=== PATIENT | female | born 1985 | race Two or more races ===

== ENCOUNTER 2017-01-12 08:30 | Emergency (ER) | payer MEDICAID ==
[2017-01-12 08:48] VITALS: BP 121/72; PULSE 66; RESP 20; TEMP 97.9; O2SAT 96
--- NOTE | 2017-01-12 09:43 | UCPHY ---
H & P Time Seen by Provider: 01/12/17 09:20 Patient Type: Established HPI/ROS: This patient complains of laryngitis with a hoarse voice and sore throat that started Monday, 3 days prior to arrival. He now has a cough that started yesterday as described is a dry cough with slight increase in symptoms over the past 12 hours or so. She has associated low-grade fevers and had no other significant symptoms associated with this. ROS: No high fevers or chills. No ear pain. No difficulty swallowing food. 5 point ROS is otherwise negative. Smoking Status: Never smoked Physical Exam: Physical Exam Vital signs are normal. General: No acute distress HEENT: Nose: Clear discharge bilaterally. No sinus tenderness to percussion. Ears: External canals and tympanic membranes are clear with no erythema or abnormal findings bilaterally. Oropharynx: No erythema or exudates. Minimal dysphonia. No drooling or stridor. Eyes: Pupils equal and react to light. Extraocular motions are intact. Neck: Supple. No lymphadenopathy Lungs: Clear to auscultation bilaterally with no rales, rhonchi or wheeze. No respiratory distress. Cardiac: Regular rate and rhythm with no murmur gallop or rub Skin: No rash or pallor. Neuro: Alert with no focal deficits noted. Initial differential diagnosis: Viral laryngitis, viral bronchitis, doubt bacterial bronchitis or pneumonia Constitutional: Initial Vital Signs Temperature (C) 36.6 C 01/12/17 08:43 Heart Rate 66 01/12/17 08:43 Respiratory Rate 20 01/12/17 08:43 Blood Pressure 121/72 H 01/12/17 08:43 O2 Sat (%) 96 01/12/17 08:43 O2 Delivery Mode Room Air Allergies/Adverse Reactions: No Known Allergies Allergy (Verified 01/12/17 08:41) Home Medications: Medication Instructions Recorded Albuterol Hfa Anes Only [Proair 2 puffs IH Q4 PRN #1 mdi 01/12/17 Hfa Icu (*)] Fluticasone Hfa 220 Mcg [Flovent 2 puffs IH DAILY #1 mdi 01/12/17 220 MCG Hfa MDI (*)] HYDROCODONE BIT/ACETAMINOPHEN 01/12/17 Hydrochlorothiazide 01/12/17 Lisinopril 01/12/17 Pantoprazole Sodium 01/12/17 MDM/Departure - MDM ED Course/Re-evaluation: I counseled patient regarding viral laryngitis and bronchitis. She has no evidence of lower respiratory infection other concerning findings clinically. - Depart Disposition: Home, Routine, Self-Care Clinical Impression: Laryngitis, Viral bronchitis Condition: Good Instructions: Laryngitis (ED) Additional Instructions: Diagnosis: 1. Viral laryngitis 2. Viral bronchitis Plan: Humidifier Flovent steroid inhaler Albuterol inhaler-2 puffs every 4 hours as needed for cough, wheeze or shortness of breath Symptoms should improve gradually over the next 5-7 days. Return for any significant worsening despite treatment plan Stand Alone Forms: Work Excuse Prescriptions: Albuterol Hfa Anes Only [Proair Hfa Icu (*)] 2 puffs IH Q4 PRN #1 mdi PRN Reason: Wheezing Fluticasone Hfa 220 Mcg [Flovent 220 MCG Hfa MDI (*)] 2 puffs IH DAILY #1 mdi Referrals: NONE *PRIMARY CARE P,. [Primary Care Provider] - As per Instructions - PQRS PQRS Measurement: NA
== END 2017-01-12 09:48 | disposition home or self-care (01) ==
LOC: CED 08:30
DX: J04.0 Acute laryngitis (principal); J20.8 Acute bronchitis due to other specified organisms
CPT/HCPCS: 99214-PO; G0463-PO

== ENCOUNTER → 2017-04-05 | Outpatient (CLI) | payer MEDICAID | LOC: CIMAGING 12:24 → MERGE 12:24 | PROVIDERS: ATTEND Family Medicine | DX: E04.1 Nontoxic single thyroid nodule (principal) | CPT/HCPCS: 76536-PO ==

== ENCOUNTER 2018-03-20 13:10 | Emergency (ER) | payer MEDICAID ==
[2018-03-20] MEDS ORDERED: NS 1,000 ML IV ONE (13:46)
--- NOTE | 2018-03-20 13:46 | EDPHY ---
H & P Stated Complaint: ABD PAIN Source: Patient - Personal History LMP (Females 10-55): 22-28 Days Ago Current Tetanus/Diphtheria Vaccine: Yes Tetanus Vaccine Date: WITHIN 10 YRS - Medical/Surgical History Hx Asthma: No Hx Chronic Respiratory Disease: No Hx Diabetes: No Hx Cardiac Disease: No Hx Renal Disease: No Hx Cirrhosis: No Hx Alcoholism: No Hx HIV/AIDS: No Hx Splenectomy or Spleen Trauma: No Other PMH: appendectomy, , tonsillectomy, hypertension, gerd, buldging L5 - Social History Smoking Status: Former smoker Time Seen by Provider: 03/20/18 13:45 HPI/ROS: HPI: This is a 33-year-old female who presents with Chief Complaint: Left upper quadrant abdominal pain Location: Left upper quadrant and epigastric Quality: Pain Duration: Starting yesterday after dinner Signs and Symptoms: no fever, no nausea, no vomiting, no hematemesis, no blood in stool, no abdominal bloating, no diarrhea, no back pain, no urinary symptoms , no vaginal bleeding/discharge, no indigestion, no chest pain, no shortness of breath Timing: Acute, dull and aching Severity: [id number] Context: Patient has a history of gastroesophageal reflux disease and takes Prilosec 20 mg daily presents with epigastric and left upper quadrant pain that is described as dull aching and burning and nonradiating in nature since yesterday evening after dinner. Patient reports that she ate pizza for dinner in immediately started to feel the pain. She denies any nausea, vomiting, diarrhea, fever, chest pain, shortness of breath. Patient believes that she has been taking Prilosec daily and that her GERD symptoms were under control. She was able to eat and drink today with only mild discomfort. She is status post appendectomy. Patient had a bowel movement yesterday. Patient denies any recent long distance travel, lower extremity edema, shortness of breath, cough. Denies regular alcohol or NSAID use. LMP 2-3 weeks ago. Chart review shows that HIDA scan in September [address] Beauchamp was normal. Modifying Factors: None Comment: ROS: see HPI Constitutional: No fever, no chills, no weight loss Eyes: No blurred vision Respiratory: No shortness of breath, no cough Cardiovascular: No chest pain, no palpitations Gastrointestinal: No nausea, no vomiting, no diarrhea, no hematemesis, no blood in stool Genitourinary: No dysuria, no blood in urine Extremities: No myalgias, no edema Neurologic: No weakness, no numbness Skin: No rashes, no petechiae Hematologic: No bruising, no bleeding MEDICAL/SURGICAL/SOCIAL HISTORY: Medical/surgical history: appendectomy, , tonsillectomy, hypertension , gerd, bulging L5 Social history: Former smoker. Family history noncontributory. CONSTITUTIONAL: Obese female who is nontoxic in appearance and polite and cooperative, awake and alert, no obvious distress HEENT: Atraumatic and normocephalic, PERRL, EOMI. Nares patent; no rhinorrhea; no nasal mucosal edema. Tympanic membranes clear. Oropharynx clear, no exudate and moist pink mucosa. Airway patent. No lymphadenopathy. No meningismus. Cardiovascular: Normal S1/S2, regular rate, regular rhythm, without murmur rub or gallop. PULMONARY/CHEST: Symmetrical and nontender. Clear to auscultation bilaterally. Good air movement. No accessory muscle usage. ABDOMEN: Soft, nondistended, right upper quadrant and epigastric moderate tenderness, no rebound, no guarding, no peritoneal signs, no masses or organomegaly. No CVAT. EXTREMITIES: 2/2 pulses, strength 5/5, no deformities, no clubbing, no cyanosis or edema. NEUROLOGICAL: no focal neuro deficits. GCS 15. SKIN: Warm and dry, no erythema. no rash. Good capillary refill. (Funmi Valencia) Constitutional: Initial Vital Signs Temperature (C) 36.6 C 03/20/18 13:13 Heart Rate 79 03/20/18 13:13 Respiratory Rate 16 03/20/18 13:13 Blood Pressure 141/112 H 03/20/18 13:13 O2 Sat (%) 95 03/20/18 13:13 O2 Delivery Mode Room Air Allergies/Adverse Reactions: No Known Allergies Allergy (Verified 03/20/18 13:16) Home Medications: Medication Instructions Recorded Hydrocodon-Acetaminophen 5-325 2 tab PO DAILY 06/03/16 Lisinopril 5 mg PO DAILY 06/03/16 Meloxicam 15 mg PO DAILY 06/03/16 Pantoprazole Sodium 40 mg PO DAILY 06/03/16 Albuterol Hfa Anes Only [Proair 2 puffs IH Q4 PRN #1 mdi 01/12/17 Hfa Icu (*)] Fluticasone Hfa 220 Mcg [Flovent 2 puffs IH DAILY #1 mdi 01/12/17 220 MCG Hfa MDI (*)] HYDROCODONE BIT/ACETAMINOPHEN 01/12/17 Hydrochlorothiazide 01/12/17 Lisinopril 01/12/17 Pantoprazole Sodium 01/12/17 Sucralfate [Carafate 1 GM (*)] 1 gm PO ACHS #28 tab 03/20/18 Medical Decision Making - Diagnostics EKG Interpretation: 12 lead EKG: Indication: Abdominal pain Rhythm: Normal sinus rhythm, rate 53 beats per minute [place]: Normal Intervals: Normal QRS: Normal ST segments: Normal INTERPRETATION: Normal EKG The 12 lead EKG was interpreted by myself and with attending. (Funmi Valencia) ED Course/Re-evaluation: EKG, labs, right upper quadrant ultrasound, urinalysis, IV fluids, IV and oral medications ordered Vital signs reviewed and stable upon arrival. Given 1 L normal saline, IV Protonix, GI cocktail 1425: EKG my read shows normal sinus rhythm with a rate of 53 beats per minute. No signs of acute ischemic changes or arrhythmia. 1435: Notified by nurse that patient is still complaining of pain in the epigastric area. Given IV morphine 4 mg and IV Zofran 4 mg with moderate relief of pain. 1539: Labs reviewed. No signs of leukocytosis/anemia/platelet dysfunction/TATY/ elevated LFTs/electrolyte imbalance/pancreatitis/ACS. 1700: End of shift. Signed over to Dr. Cooper pending right upper quadrant ultrasound results. Will increase her Prilosec to 40 twice a day and add Carafate for the next week. This patient was seen under the supervision of my secondary supervising physician. I evaluated care for this patient independently. Discussed this patient with Dr. Cooper. (Funmi Valencia) Differential Diagnosis: Abdominal pain including but not limited to appendicitis, cholecystitis, gastritis and urinary tract infection. (Funmi Valencia) Other Provider: 16:45 I assumed care of this patient at shift change pending US results. 16:[address] Pollard, radiologist. US negative for cholecystitis. UA positive for UTI. I assessed and examined the patient. She is tender over the left CVA. Presentation is consistent with pyelonephritis. Plan to administer 2gm IV Ceftriaxone. Plan to discharge home in good condition with prescription for Keflex and oxycodone for pain relief. She will follow up with her primary care physician. Return precautions discussed. She is comfortable with this plan. ( Reilly Cooper) - Data Points Laboratory Results: Laboratory Results 03/20/18 14:00 03/20/18 14:00 03/20/18 03/20/18 03/20/18 16:00 15:18 14:37 WBC RBC Hgb Hct MCV MCH MCHC RDW Plt Count MPV Neut % (Auto) Lymph % (Auto) [place] % (Auto) Eos % (Auto) Baso % (Auto) Nucleat RBC Rel Count Absolute Neuts (auto) Absolute Lymphs (auto) Absolute Monos (auto) Absolute Eos (auto) Absolute Basos (auto) Absolute Nucleated RBC Immature Gran % Immature Gran # Sodium Potassium Chloride Carbon Dioxide Anion Gap BUN Creatinine Estimated GFR Glucose Calcium Total Bilirubin Conjugated Bilirubin Unconjugated Bilirubin AST ALT Alkaline Phosphatase POC Troponin I 0.00 ng/mL ng/mL (0.00-0.08) Troponin I < 0.012 ng/mL ng/mL (0.000-0.034) Total Protein Albumin Lipase Beta HCG, Qual Urine Color YELLOW Urine Appearance HAZY Urine pH 6.0 (5.0-7.5) Ur Specific Fore[place] 1.011 (1.002-1.030) Urine Protein NEGATIVE (NEGATIVE) Urine Ketones NEGATIVE (NEGATIVE) Urine Blood 1+ H (NEGATIVE) Urine Nitrate NEGATIVE (NEGATIVE) Urine Bilirubin NEGATIVE (NEGATIVE) Urine Urobilinogen NEGATIVE EU EU (0.2-1.0) Ur Leukocyte Esterase 3+ H (NEGATIVE) Urine RBC 5-10 /hpf H /hpf (0-3) Urine WBC 25-50 /hpf H /hpf (0-3) Ur Epithelial Cells 2+ /lpf H /lpf (NONE-1+) Urine Bacteria TRACE /hpf H /hpf (NONE SEEN) Urine Mucus TRACE /lpf /lpf (NONE-1+) Urine Glucose NEGATIVE (NEGATIVE) 03/20/18 03/20/18 03/20/18 14:00 14:00 14:00 WBC 8.26 10^3/uL 10^3/uL (3.80-9.50) RBC 5.31 10^6/uL 10^6/uL (4.18-5.33) Hgb 14.9 g/dL g/dL (12.6-16.3) Hct 43.2 % % (38.0-47.0) MCV 81.4 fL L fL (81.5-99.8) MCH 28.1 pg pg (27.9-34.1) MCHC 34.5 g/dL g/dL (32.4-36.7) RDW 13.1 % % (11.5-15.2) Plt Count 303 10^3/uL 10^3/uL (150-400) MPV 9.1 fL fL (8.7-11.7) Neut % (Auto) 58.9 % % (39.3-74.2) Lymph % (Auto) 32.4 % % (15.0-45.0) [place] % (Auto) 6.2 % % (4.5-13.0) Eos % (Auto) 1.7 % % (0.6-7.6) Baso % (Auto) 0.6 % % (0.3-1.7) Nucleat RBC Rel Count 0.0 % % (0.0-0.2) Absolute Neuts (auto) 4.86 10^3/uL 10^3/uL (1.70-6.50) Absolute Lymphs (auto) 2.68 10^3/uL 10^3/uL (1.00-3.00) Absolute Monos (auto) 0.51 10^3/uL 10^3/uL (0.30-0.80) Absolute Eos (auto) 0.14 10^3/uL 10^3/uL (0.03-0.40) Absolute Basos (auto) 0.05 10^3/uL 10^3/uL (0.02-0.10) Absolute Nucleated RBC 0.00 10^3/uL 10^3/uL (0-0.01) Immature Gran % 0.2 % % (0.0-1.1) Immature Gran # 0.02 10^3/uL 10^3/uL (0.00-0.10) Sodium 141 mEq/L mEq/L (135-145) Potassium 4.0 mEq/L mEq/L (3.3-5.0) Chloride 106 mEq/L mEq/L (97-110) Carbon Dioxide 21 mEq/l L mEq/l (22-31) Anion Gap 14 mEq/L mEq/L (8-16) BUN 11 mg/dL mg/dL (7-23) Creatinine 0.8 mg/dL mg/dL (0.6-1.0) Estimated GFR > 60 Glucose 96 mg/dL mg/dL (70-100) Calcium 9.5 mg/dL mg/dL (8.5-10.4) Total Bilirubin 0.8 mg/dL mg/dL (0.1-1.4) Conjugated Bilirubin 0.5 mg/dL mg/dL (0.0-0.5) Unconjugated Bilirubin 0.3 mg/dL mg/dL (0.0-1.1) AST 34 IU/L IU/L (14-46) ALT 46 IU/L IU/L (9-52) Alkaline Phosphatase 94 IU/L IU/L (38-126) POC Troponin I Troponin I Total Protein 7.4 g/dL g/dL (6.3-8.2) Albumin 4.1 g/dL g/dL (3.5-5.0) Lipase 119 IU/L IU/L (23-300) Beta HCG, Qual NEGATIVE Urine Color Urine Appearance Urine pH Ur Specific Foreman Urine Protein Urine Ketones Urine Blood Urine Nitrate Urine Bilirubin Urine Urobilinogen Ur Leukocyte Esterase Urine RBC Urine WBC Ur Epithelial Cells Urine Bacteria Urine Mucus Urine Glucose Medications Given: Discontinued Medications Al Hydroxide/Mg Hydroxide (Maalox Susp) 30 ml PO ONCE ONE Stop: 03/20/18 13:53 Last Admin: 03/20/18 14:10 Dose: 30 ml Hyoscyamine Sulfate (Levsin, Hyomax-Sl) 0.25 mg PO ONCE ONE Stop: 03/20/18 13:53 Last Admin: 03/20/18 14:10 Dose: 0.25 mg Sodium Chloride (Ns) 1,000 mls @ 0 mls/hr IV EDNOW ONE; Wide Open PRN Reason: Protocol Stop: 03/20/18 13:47 Last Admin: 03/20/18 14:10 Dose: 1,000 mls Lidocaine (Lidocaine 2% Viscous) 15 ml PO ONCE ONE Stop: 03/20/18 13:53 Last Admin: 03/20/18 14:10 Dose: 15 ml Morphine Sulfate (Morphine) 4 mg IVP EDNOW ONE Stop: 03/20/18 14:37 Last Admin: 03/20/18 15:03 Dose: 4 mg Ondansetron HCl (Zofran) 4 mg IVP EDNOW ONE Stop: 03/20/18 14:58 Last Admin: 03/20/18 15:04 Dose: 4 mg Pantoprazole Sodium (Protonix) 40 mg IVP EDNOW ONE Stop: 03/20/18 13:53 Last Admin: 03/20/18 14:10 Dose: 40 mg Point of Care Test Results: Chemistry 03/20/18 15:18 POC Troponin I 0.00 ng/mL ng/mL (0.00-0.08) Departure - Departure Disposition: Home, Routine, Self-Care Clinical Impression: Acute pyelonephritis GERD (gastroesophageal reflux disease) Qualifiers: Esophagitis presence: esophagitis presence not specified Qualified Code(s): K21.9 - Gastro-esophageal reflux disease without esophagitis Condition: Good Instructions: Diet for Stomach Ulcers and Gastritis (ED), Gastroesophageal Reflux Disease (ED), Urinary Tract Infection in Women (ED), Kidney Infection (ED ), Cephalexin (By mouth) Additional Instructions: Take Keflex as prescribed. It is important to finish your entire course of antibiotics even if you are feeling better. Take oxycodone as prescribed as needed for severe pain. Return to the emergency department for fever, worsening pain, or other worsening of condition. Please increase Prilosec to 40 mg twice daily for the next 2 weeks. Then resume Prilosec 20 mg daily. Take Carafate 30 min before meals and at bedtime for the next 7 days. Follow-up with Gastroenterology in the next 1-2 weeks if symptoms persist. Please follow gastroesophageal reflux disease diet. Referrals: Samantha Rowe MD [Primary Care Provider] - As per Instructions Prescriptions: Sucralfate [Carafate 1 GM (*)] 1 gm PO ACHS #28 tab
[2018-03-20] MEDS ORDERED: HYOSCYAMINE SULFATE 0.125 MG TAB PO ONE (13:52)
[2018-03-20] MEDS ORDERED: MAG HYDROX/AL HYDROX/SIMETH 30 ML UDCUP PO ONE (13:52)
[2018-03-20] MEDS ORDERED: PANTOPRAZOLE SODIUM 40 MG VIAL IVP ONE (13:52)
[2018-03-20] MEDS ORDERED: LIDOCAINE 2% VISCOUS 15 ML UDCUP PO ONE (13:52)
[2018-03-20 14:16] LABS: PLATELET COUNT 303 10^3/uL (150-400)
--- NOTE | 2018-03-20 14:22 | CPEKG ---
Heart Rate: 53 RR Interval: 1132 P-R Interval: 160 QRSD Interval: 76 QT Interval: 440 QTC Interval: 414 P [place]: 35 QRS [place]: 32 T Wave [place]: 16 EKG Severity - NORMAL ECG - EKG Impression: SINUS RHYTHM Electronically Signed By: Serjio Howe 20-Mar-2018 14:27:56
[2018-03-20] MEDS ORDERED: ONDANSETRON 4 MG/2 ML VIAL IVP ONE (14:57)
[2018-03-20 18:31] VITALS: BP 102/63
== END 2018-03-20 18:28 | disposition home or self-care (01) ==
DX: N10 Acute pyelonephritis (principal); K21.9 Gastro-esophageal reflux disease without esophagitis; I10 Essential (primary) hypertension; B96.89 Other specified bacterial agents as the cause of diseases classified elsewhere; E86.9 Volume depletion, unspecified; Z87.891 Personal history of nicotine dependence; Z90.49 Acquired absence of other specified parts of digestive tract
CPT/HCPCS: 84484-PO; 96365; J0696; J2270; J2405

== ENCOUNTER 2018-12-29 16:36 | Emergency (ER) | payer MEDICAID ==
[2018-12-29] MEDS ORDERED: NS 500 ML IV ONE (18:39)
[2018-12-29] MEDS ORDERED: DEXAMETHASONE 10 MG/ML VIAL IVP ONE (18:39)
[2018-12-29] MEDS ORDERED: METOCLOPRAMIDE 10 MG/2 ML VIAL IVP ONE (18:39)
[2018-12-29] MEDS ORDERED: KETOROLAC 30 MG/1 ML SDV IVP ONE (18:39)
--- NOTE | 2018-12-29 18:50 | EDPHY ---
H & P Time Seen by Provider: 12/29/18 18:02 HPI/ROS: HPI Headache. Eyes burning. 33-year-old female by private vehicle with her friend. This patient reports a gradual onset headache starting 3 days ago. She describes this as global throughout her entire head. She describes it as an aching sensation. She has had headaches in the past but they have not persisted to this extent. She describes her past headaches as tension headaches. She also describes having a burning sensation in her eyes and her eyes being red. She denies any purulent discharge or other significant discharge. No history of trauma to the eyes. She denies any change in her vision. She has not had any photophobia. She denies any neck pain. ROS: Constitutional: No fever, no chills. No weakness. Eyes: No discharge. No changes in vision. As above. ENT: No sore throat. No nasal congestion or rhinorrhea. Respiratory: No cough. No shortness of breath. Cardiac: No chest pain, no palpitations. Gastrointestinal: No abdominal pain, no vomiting, no diarrhea. Genitourinary: No hematuria. No dysuria or increased frequency with urination. Musculoskeletal: No back pain. No neck pain. No myalgias or arthralgias. Skin: No rashes. Neurological: As above. No focal weakness or altered sensation. Past medical history: Appendectomy, , tonsillectomy, hypertension, GERD, anxiety, bulging disc at L5. Social history: Nonsmoker. She denies alcohol. She is here with her friend. Physical Exam: General Appearance: Alert, she does not appear to be in distress. This patient is responding to questions appropriately and in full sentences. This patient appears well-hydrated and well-nourished. Eyes: Pupils equal and round no pallor or injection. She has some vague and mild scleral erythema. No discharge. No pain with extraocular movements. No lid edema, erythema or injection. No nystagmus. No photophobia. Respiratory: There are no retractions, lungs are clear to auscultation with good air movement bilaterally. Cardiovascular: Regular rate and rhythm. No murmur. Gastrointestinal: Abdomen is soft and nontender, no masses, bowel sounds normal. No focal tenderness at McBurney's point. No Dominguez sign. Neurological: Motor sensory function is grossly intact. Cranial nerves are normal. Gait is normal. Skin: Warm and dry, no rashes. Musculoskeletal: Neck is supple and nontender. She has no pain on flexion of her neck. Extremities are symmetrical. All joints range without pain or impingement. Psychiatric: No agitation. No depression. Database: EKG: EKG time is 6:44 p.m.; EKG shows a narrow complex normal sinus rhythm with a ventricular rate of 64. The [place], QRS, QT intervals are within normal limits. There are no ST-T wave changes indicative of ischemic or injury pattern. No evidence of right heart strain. Interpreted by me. Imaging: Procedures: Emergency department course: Her triage vitals were reviewed and are unremarkable. She is afebrile. During my evaluation she told me that while she was in the waiting room she had needle- like stabbing in her left upper chest. This came on suddenly and has since resolved. An EKG was obtained and reviewed by myself. This was unremarkable. Her presentation is consistent with a tension versus migraine headache. I do not believe she has an infectious conjunctivitis. I feel the burning in her eyes is likely allergy related. An IV will be placed. She will be started on IV normal saline with 500 cc to be given over the next hour. She will initially be given 25 mg of IV Benadryl, 10 mg of IV Reglan, 10 mg of IV Decadron and 30 mg of IV Toradol. Carboxyhemoglobin will also be obtained. 7:25 p.m., the patient stated that her headache pain has improved but is still present. She was given 0.5 mg of IV hydromorphone. 8:25 p.m., the patient was re-evaluated, she was sleeping but easily arousable. She reports that her headache is much better. Repeat neurologic Assessment is nonfocal. Her neck is supple and nontender on flexion of her neck. She does not have any photophobia. I feel that meningitis and encephalitis as well as subarachnoid hemorrhage or unlikely. She does feel comfortable going home at this time. Her friend will be driving. Follow-up was discussed with her. Return to emergency department precautions thoroughly reviewed. All of her questions were answered. She was discharged from the emergency department in good condition. The results of her EKG was discussed with her. She has had no further chest pain or discomfort while in the emergency department. Differential Diagnosis: The differential diagnosis on this patient includes but is not limited to tension headache, migraine headache. Subarachnoid hemorrhage, cavernous sinus thrombosis, sagittal sinus thrombosis, temporal arteritis, meningitis, encephalitis unlikely. This represents a partial list of diagnoses considered. These considerations are based on history, physical exam, past history, reassessment and diagnostic testing. Smoking Status: Former smoker Constitutional: Initial Vital Signs Temperature (C) 37.3 C 12/29/18 16:48 Heart Rate 78 12/29/18 16:48 Respiratory Rate 18 12/29/18 16:48 Blood Pressure 133/94 H 12/29/18 16:48 O2 Sat (%) 93 12/29/18 16:48 O2 Delivery Mode Room Air Allergies/Adverse Reactions: No Known Allergies Allergy (Verified 12/29/18 16:51) Home Medications: Medication Instructions Recorded Meloxicam 15 mg PO DAILY 06/03/16 HYDROCODONE BIT/ACETAMINOPHEN 01/12/17 Hydrochlorothiazide 01/12/17 Lisinopril 01/12/17 Pantoprazole Sodium 01/12/17 Medical Decision Making - Data Points Laboratory Results: 12/29/18 18:50 Carboxyhemoglobin 1.6 % H % (0-1.5) Medications Given: Discontinued Medications Dexamethasone (Decadron Injection) 10 mg IVP EDNOW ONE Stop: 12/29/18 18:40 Last Admin: 12/29/18 19:00 Dose: 10 mg Diphenhydramine HCl (Benadryl Injection) 25 mg IVP EDNOW ONE Stop: 12/29/18 18:40 Last Admin: 12/29/18 19:00 Dose: 25 mg Hydromorphone HCl (Dilaudid) 0.5 mg IVP EDNOW ONE Stop: 12/29/18 19:31 Last Admin: 12/29/18 19:34 Dose: 0.5 mg Sodium Chloride (Ns) 500 mls @ 0 mls/hr IV ONCE ONE; Wide Open PRN Reason: Protocol Stop: 12/29/18 18:40 Last Admin: 12/29/18 19:01 Dose: 500 mls Ketorolac Tromethamine (Toradol) 30 mg IVP EDNOW ONE Stop: 12/29/18 18:40 Last Admin: 12/29/18 19:06 Dose: 30 mg Metoclopramide HCl (Reglan Injection) 10 mg IVP EDNOW ONE Stop: 12/29/18 18:40 Last Admin: 12/29/18 19:00 Dose: 10 mg Departure - Departure Disposition: Home, Routine, Self-Care Clinical Impression: Headache, Allergic conjunctivitis Condition: Good Instructions: Acute Headache (ED) Additional Instructions: Read and follow provided instructions. Follow-up with your primary care physician on Monday or Monday of this week for re-evaluation as discussed. I feel the irritation to your eyes is secondary to an allergic problem. You can get [id number] drops at your pharmacy for allergic conjunctivitis. I do not feel that you need antibiotics at this time. Return to the emergency department for worsening headache, nausea and vomiting, neck pain, confusion, fever or other serious concerns. Referrals: Samantha Rowe MD [Primary Care Provider] - As per Instructions
[2018-12-29] MEDS ORDERED: HYDROmorphONE/DILAUDID 2 MG/ML INJ IVP ONE (19:30)
[2018-12-29 20:50] VITALS: BP 122/77
--- NOTE | 2018-12-30 20:57 | CPEKG ---
Test Reason : OPEN Blood Pressure : / mmHG Vent. Rate : 064 BPM Atrial Rate : 063 BPM P-R Int : 147 ms QRS Dur : 081 ms QT Int : 411 ms P-R-T Axes : 038 033 026 degrees QTc Int : 424 ms Sinus rhythm Confirmed by Cookie Schneider ([id number]) on 12/30/2018 8:57:02 PM Referred By: Cookie Schneider Confirmed By:Cookie Schneider
== END 2018-12-29 20:49 | disposition home or self-care (01) ==
DX: R51 Headache (principal); H10.13 Acute atopic conjunctivitis, bilateral
CPT/HCPCS: 96374; J1100; J1170; J1200; J1885; J2765

== ENCOUNTER 2018-12-30 20:50 | Emergency (ER) | payer MEDICAID ==
--- NOTE | 2018-12-30 21:26 | EDPHY ---
H & P Stated Complaint: MATA, NECK PAIN, NAUSEA Time Seen by Provider: 12/30/18 20:57 HPI/ROS: CHIEF COMPLAINT: "I've got a headache" HISTORY OF PRESENT ILLNESS: 33-year-old female arrives via private vehicle complaining of non thunderclap headache since yesterday afternoon. She was seen the ER yesterday for complaints of pain states that she had moderate relief however the pain returned this morning. She describes a non thunderclap headache with associated photophobia, audio phobia, nausea, vomiting. She denies: Gait instability, major minor head or neck trauma or neck manipulation , chest pain, dyspnea, abdominal pain, fever, chills, chest pain REVIEW OF SYSTEMS: 10 systems reviewed and negative with the exception of the elements mentioned in the history of present illness PAST MEDICAL & SURGICAL HISTORY: No history of chronic headache or migraine. No VTE history. SOCIAL HISTORY: Denies IV drug abuse. PHYSICAL EXAM (Prior to examination, patient consented to physical exam, hands were washed and my usual and customary physical exam procedures followed) 1) GENERAL: Well-developed, well-nourished, alert and oriented. Appears uncomfortable, sitting in a darkened room, averse to light and sound 2) HEAD: Normocephalic, atraumatic 3) HEENT: Pupils equal, round, reactive to light bilaterally. Sclera anicteric. No injection. Positive photophobia. Nasopharynx, oropharynx, clear , no lesions. Moist Mucous membranes. Ears bilaterally with normal tympanic membranes. 4) NECK: Full range of motion, no meningeal signs. 5) LUNGS: Clear auscultation bilaterally, no wheezes, no rhonchi, no retractions. 6) HEART: Regular rate and rhythm, no murmur, no heave, no gallop. 7) ABDOMEN: No guarding, no rebound, no focal tenderness, negative McBurney's, negative Dominguez's, negative Rovsing's, negative peritoneal sign, 8) MUSCULOSKELETAL: Moving all extremities, no focal areas of tenderness, no obvious trauma. No peripheral edema or discoloration. 9) BACK: No CVA tenderness, no midline vertebral tenderness, no fluctuance, no step-off, no obvious trauma, no visual or palpable abnormality. 10) SKIN: No rash, no petechiae. 11) Psychiatric: Patient is oriented X 3, there is no agitation. 12) NEURO: Awake, alert, and oriented to person, place and time. Answers questions appropriately. There were no obvious focal neurologic abnormalities. No cerebellar dysfunction. Cranial nerves 2 through to 12 intact. Normal steady gait. Upper and lower extremities bilaterally with strength 5 / 5, reflexes 2+. 13) CERVICAL SPINE NEURO EXAM: Bilateral reflexes of biceps triceps brachioradialis intact equal bilaterally Motor exam: deltoid, biceps, wrist extension, tricep, finger extension, finger flexion, finger abduction intact equal bilaterally 5/5 DIFFERENTIAL DIAGNOSIS: In no particular order, including but not limited to subarachnoid hemorrhage, migraine headache, tension headache and infectious causes such as meningitis, pharyngitis and sinusitis. The patient understands that this diagnosis is provisional and can never be 100% accurate. Usual and customary warnings were given concerning the clinical impression and all the patient's questions were answered. The patient was instructed to return to the emergency department should her symptoms worsen or return, or develop any new symptoms, otherwise to followup as directed in discharge instructions. This is a partial list of diagnoses considered. These considerations are based on history, physical exam, past history and reassessment. - Personal History LMP (Females 10-55): 8-14 Days Ago Current Tetanus Diphtheria and Acellular Pertussis (TDAP): Yes Tetanus Vaccine Date: WITHIN 10 YRS - Medical/Surgical History Hx Asthma: No Hx Chronic Respiratory Disease: No Hx Diabetes: No Hx Cardiac Disease: Yes Hx Renal Disease: No Hx Cirrhosis: No Hx Alcoholism: No Hx HIV/AIDS: No Hx Splenectomy or Spleen Trauma: No Other PMH: appendectomy, , tonsillectomy, hypertension, gerd, buldging L5, anxiety - Social History Smoking Status: Former smoker Constitutional: Initial Vital Signs Temperature (C) 37.2 C 12/30/18 20:53 Heart Rate 80 12/30/18 20:53 Respiratory Rate 16 12/30/18 20:53 Blood Pressure 136/92 H 12/30/18 20:53 O2 Sat (%) 95 12/30/18 20:53 O2 Delivery Mode Room Air Allergies/Adverse Reactions: No Known Allergies Allergy (Verified 12/29/18 16:51) Home Medications: Medication Instructions Recorded Meloxicam 15 mg PO DAILY 06/03/16 HYDROCODONE BIT/ACETAMINOPHEN 01/12/17 Hydrochlorothiazide 01/12/17 Lisinopril 01/12/17 Pantoprazole Sodium 01/12/17 Medical Decision Making - Diagnostics Imaging Results: Imaging Impressions Head CT 12/30/18 21:59 Impression: Suspect Arnold-Chiari 1 malformation, which could be confirmed with MRI examination. Otherwise unremarkable CT examination of the head without contrast. Results called to Placido Rowland PA-C, at 10:40 PM at the time of the interpretation. Head CTA 12/30/18 21:59 Impression: Negative CT angiogram of the [place]. Results called to Placido Rowland PA-C, at 10:50 PM.. Neck CTA 12/30/18 21:59 Impression: Negative CT angiogram of the carotid and vertebral basilar systems. Note: All stenoses are calculated using NASCET Criteria. Images reviewed myself ED Course/Re-evaluation: 9:00 p.m.: I reviewed the patient's old medical record. She has a nonfocal exam currently. 11:04 p.m.: Re-evaluation. Discussed her negative imaging results. She is sleeping. Easily woken. States that she is feeling "totally better". She remains the nonfocal neurologic exam. At this time I think the patient can be discharged home. [facility]. Provided my usual and customary headache precautions instructions. I do not think that lumbar puncture is indicated at this time. She feels comfortable being discharged. Care of patient under supervision of secondary supervising physician Dr Echavarria . - Data Points Laboratory Results: Laboratory Results 12/30/18 21:30 12/30/18 21:30 12/30/18 12/30/18 12/30/18 21:30 21:30 21:30 WBC 17.31 10^3/uL H 10^3/uL (3.80-9.50) RBC 5.00 10^6/uL 10^6/uL (4.18-5.33) Hgb 13.7 g/dL g/dL (12.6-16.3) Hct 41.4 % % (38.0-47.0) MCV 82.8 fL fL (81.5-99.8) MCH 27.4 pg L pg (27.9-34.1) MCHC 33.1 g/dL g/dL (32.4-36.7) RDW 13.2 % % (11.5-15.2) Plt Count 308 10^3/uL 10^3/uL (150-400) MPV 9.4 fL fL (8.7-11.7) Neut % (Auto) 75.0 % H % (39.3-74.2) Lymph % (Auto) 18.4 % % (15.0-45.0) [place] % (Auto) 5.7 % % (4.5-13.0) Eos % (Auto) 0.2 % L % (0.6-7.6) Baso % (Auto) 0.2 % L % (0.3-1.7) Nucleat RBC Rel Count 0.0 % % (0.0-0.2) Absolute Neuts (auto) 12.99 10^3/uL H 10^3/uL (1.70-6.50) Absolute Lymphs (auto) 3.19 10^3/uL H 10^3/uL (1.00-3.00) Absolute Monos (auto) 0.98 10^3/uL H 10^3/uL (0.30-0.80) Absolute Eos (auto) 0.03 10^3/uL 10^3/uL (0.03-0.40) Absolute Basos (auto) 0.04 10^3/uL 10^3/uL (0.02-0.10) Absolute Nucleated RBC 0.00 10^3/uL 10^3/uL (0-0.01) Immature Gran % 0.5 % % (0.0-1.1) Immature Gran # 0.08 10^3/uL 10^3/uL (0.00-0.10) Sodium 141 mEq/L mEq/L (135-145) Potassium 3.9 mEq/L mEq/L (3.5-5.2) Chloride 109 mEq/L mEq/L (97-110) Carbon Dioxide 22 mEq/l mEq/l (22-31) Anion Gap 10 mEq/L mEq/L (6-14) BUN 13 mg/dL mg/dL (7-23) Creatinine 0.7 mg/dL mg/dL (0.6-1.0) Estimated GFR > 60 Glucose 221 mg/dL H mg/dL (70-100) Calcium 9.0 mg/dL mg/dL (8.5-10.4) Beta HCG, Qual NEGATIVE Medications Given: Discontinued Medications Dexamethasone (Decadron Injection) 8 mg IVP EDNOW ONE Stop: 12/30/18 22:12 Last Admin: 12/30/18 22:36 Dose: 8 mg Haloperidol Lactate (Haldol Injection) 2.5 mg IVP EDNOW ONE Stop: 12/30/18 21:28 Last Admin: 12/30/18 21:33 Dose: 2.5 mg Sodium Chloride (Ns) 1,000 mls @ 0 mls/hr IV ONCE ONE PRN Reason: Wide Open Stop: 12/30/18 21:28 Last Admin: 12/30/18 21:32 Dose: 1,000 mls Ketorolac Tromethamine (Toradol) 15 mg IVP/IM EDNOW ONE Stop: 12/30/18 22:12 Last Admin: 12/30/18 22:34 Dose: 15 mg Metoclopramide HCl (Reglan Injection) 10 mg IVP EDNOW ONE Stop: 12/30/18 22:12 Last Admin: 12/30/18 22:38 Dose: 10 mg Departure - Departure Disposition: Home, Routine, Self-Care Clinical Impression: Headache Condition: Good Instructions: Acute Headache (ED), Acute Headache (DC) Additional Instructions: THANK YOU FOR YOUR VISIT TO OUR EMERGENCY DEPARTMENT (ED). YOU WERE SEEN TODAY BECAUSE OF A HEADACHE. YOU MAY HAVE HAD LAB TESTS, A CT SCAN, MRI OR EVEN A LUMBAR PUNCTURE (COMMONLY REFERRED TO A SPINAL TAP). WE CANNOT ALWAYS FIND THE EXACT CAUSE OF YOUR SYMPTOMS DURING YOUR VISIT TO THE ED. PLEASE FOLLOW UP WITH YOUR DOCTOR WITHIN 24 HOURS TO BE RECHECKED. RETURN TO THE ED IMMEDIATELY IF YOUR HEADACHE WORSENS, IF YOU DEVELOP A FEVER, NECK PAIN OR NECK STIFFNESS, OR IF YOU BECOME CONFUSED OR ABNORMALLY DROWSY. Referrals: [facility],. [Clinic] - 1-2 days without fail
[2018-12-30] MEDS ORDERED: NS 1,000 ML IV ONE (21:27)
[2018-12-30] MEDS ORDERED: HALOPERIDOL LACT 5 MG/ML INJ IVP ONE (21:27)
[2018-12-30 21:41] LABS: PLATELET COUNT 308 10^3/uL (150-400)
[2018-12-30] MEDS ORDERED: IOPAMIDOL (ISOVUE 370) 100 ML BTL IV ONE (22:08)
[2018-12-30] MEDS ORDERED: KETOROLAC 15 MG/1 ML SDV IVP/IM ONE (22:11)
[2018-12-30] MEDS ORDERED: METOCLOPRAMIDE 10 MG/2 ML VIAL IVP ONE (22:11)
[2018-12-30] MEDS ORDERED: DEXAMETHASONE 4 MG/ML VIAL IVP ONE (22:11)
[2018-12-30 23:16] VITALS: BP 136/85
== END 2018-12-30 23:16 | disposition home or self-care (01) ==
DX: R51 Headache (principal)
CPT/HCPCS: 96374; J1100; J1630; J1885; J2765; Q9967

== ENCOUNTER 2019-01-06 13:02 | Emergency (ER) | payer MEDICAID ==
[2019-01-06] MEDS ORDERED: NS 1,000 ML IV ONE (13:29)
--- NOTE | 2019-01-06 13:30 | EDPHY ---
H & P Time Seen by Provider: 01/06/19 13:21 HPI/ROS: Chief complaint. Headache, neck pain HPI. 33-year-old female presents emergency department with headache that began December 26. Gradual onset. The headache continues. She also has some posterior neck pain. She was seen in the emergency department December 29 and was treated symptomatic LEEP. She returned on December 30 and had a head CT noncontrast which showed suspicious Arnold-Chiari malformation. She had a CTA head and neck that was negative. At that time she had a 17.3 white blood cell count. The patient tells me she gets hot at night but otherwise is not running fever. Vision is okay but slightly Valerie blurry when the headache is bad. No recent injury. No URI symptoms. No peripheral weakness or altered sensation in arms or legs. She had an MRI 3 days ago in [place] of which we do not know the results. She has really no history of headaches ROS 10 systems were reviewed and negative with the exception of the elements mentioned in the history of present illness Past Medical/Surgical History: Chronic back pain, appendectomy, , hypertension, GERD, bulging L5 disc , anxiety Social History: , nonsmoker, no alcohol Smoking Status: Former smoker Physical Exam: General Appearance: A well-developed female moderate distress. Vital signs are stable. Afebrile Eyes: Pupils equal and round no pallor or injection. ENT, Mouth: Mucous membranes are moist. Respiratory: There are no retractions, lungs are clear to auscultation. Cardiovascular: Regular rate and rhythm. Gastrointestinal: Abdomen is soft and nontender, no masses, bowel sounds normal. Neurological: Awake and alert, sensory and motor exams grossly normal. Skin: Warm and dry, no rashes. Musculoskeletal: Neck is supple nontender. Patient can look up at the ceiling and she can talk her chin to touch her chest. She tells me she has some increased discomfort in her neck when she touches her chin to her chest. Otherwise the neck is supple Extremities symmetrical, full range of motion. Psychiatric: Patient is oriented X 3, there is no agitation. Constitutional: Initial Vital Signs Temperature (C) 36.9 C 01/06/19 13:08 Heart Rate 73 01/06/19 13:08 Respiratory Rate 18 01/06/19 13:08 Blood Pressure 112/92 H 01/06/19 13:08 O2 Sat (%) 93 01/06/19 13:08 O2 Delivery Mode Room Air Allergies/Adverse Reactions: No Known Allergies Allergy (Verified 01/06/19 13:11) Home Medications: Medication Instructions Recorded Meloxicam 15 mg PO DAILY 06/03/16 HYDROCODONE BIT/ACETAMINOPHEN 01/12/17 Hydrochlorothiazide 01/12/17 Lisinopril 01/12/17 Pantoprazole Sodium 01/12/17 Cyclobenzaprine [Flexeril 10 MG 10 mg PO TID PRN #15 tab 01/06/19 (*)] Medical Decision Making - Diagnostics Imaging Results: Imaging Impressions Radiology Consultation 01/06/19 14:53 Impression: 1. Cervical occipital junction is within normal limit. No Chiari I malformation. 2. Minimal scant subcortical white matter disease throughout the frontal parietal lobes is nonspecific and may be manifestation of previous migraine, trauma or infection. Features are not pathognomonic for multiple sclerosis. 3. No intracranial hemorrhage, mass, or swelling. Findings discussed with Emergency Department physician, KARI ROSALES at 01/06 15:50. MRI from outside imaging center is normal. Procedures: Old record review IV normal saline. Reglan Benadryl Toradol IV ED Course/Re-evaluation: Re-evaluation patient says she still has headache. However on next evaluation patient is sleeping. She has also been talking on the phone. I consulted discussed the case with Dr. Melo for neurology who recommends no further workup or LP currently. For 30 p.m. I have discussed case with the patient including imaging and lab results. We discussed treatment plan including criteria for return importance follow-up further evaluation. She expresses understanding and agreement Differential Diagnosis: No evidence for hemorrhage, CVA, brain abnormality on MRI. Elevated white count 1 week ago but essentially normal now. She has had headache for 11 days and it was gradual onset and not thunderclap or abrupt. Likely tension headache - Data Points Laboratory Results: Laboratory Results 01/06/19 13:45 01/06/19 13:45 01/06/19 01/06/19 01/06/19 13:45 13:45 13:45 WBC 9.53 10^3/uL H 10^3/uL (3.80-9.50) RBC 5.68 10^6/uL H 10^6/uL (4.18-5.33) Hgb 15.5 g/dL g/dL (12.6-16.3) Hct 46.4 % % (38.0-47.0) MCV 81.7 fL fL (81.5-99.8) MCH 27.3 pg L pg (27.9-34.1) MCHC 33.4 g/dL g/dL (32.4-36.7) RDW 13.2 % % (11.5-15.2) Plt Count 293 10^3/uL 10^3/uL (150-400) MPV 9.0 fL fL (8.7-11.7) Neut % (Auto) 62.7 % % (39.3-74.2) Lymph % (Auto) 28.3 % % (15.0-45.0) [place] % (Auto) 6.3 % % (4.5-13.0) Eos % (Auto) 1.7 % % (0.6-7.6) Baso % (Auto) 0.6 % % (0.3-1.7) Nucleat RBC Rel Count 0.0 % % (0.0-0.2) Absolute Neuts (auto) 5.97 10^3/uL 10^3/uL (1.70-6.50) Absolute Lymphs (auto) 2.70 10^3/uL 10^3/uL (1.00-3.00) Absolute Monos (auto) 0.60 10^3/uL 10^3/uL (0.30-0.80) Absolute Eos (auto) 0.16 10^3/uL 10^3/uL (0.03-0.40) Absolute Basos (auto) 0.06 10^3/uL 10^3/uL (0.02-0.10) Absolute Nucleated RBC 0.00 10^3/uL 10^3/uL (0-0.01) Immature Gran % 0.4 % % (0.0-1.1) Immature Gran # 0.04 10^3/uL 10^3/uL (0.00-0.10) Sodium 138 mEq/L mEq/L (135-145) Potassium 4.7 mEq/L mEq/L (3.5-5.2) Chloride 104 mEq/L mEq/L (97-110) Carbon Dioxide 24 mEq/l mEq/l (22-31) Anion Gap 10 mEq/L mEq/L (6-14) BUN 15 mg/dL mg/dL (7-23) Creatinine 0.7 mg/dL mg/dL (0.6-1.0) Estimated GFR > 60 Glucose 87 mg/dL mg/dL (70-100) Calcium 9.5 mg/dL mg/dL (8.5-10.4) Beta HCG, Qual NEGATIVE Medications Given: Discontinued Medications Diphenhydramine HCl (Benadryl Injection) 25 mg IVP EDNOW ONE Stop: 01/06/19 14:12 Last Admin: 01/06/19 15:13 Dose: 25 mg Sodium Chloride (Ns) 1,000 mls @ 0 mls/hr IV EDNOW ONE; Wide Open PRN Reason: Protocol Stop: 01/06/19 13:30 Last Admin: 01/06/19 13:46 Dose: 1,000 mls Ketorolac Tromethamine (Toradol) 30 mg IVP EDNOW ONE Stop: 01/06/19 14:12 Last Admin: 01/06/19 15:13 Dose: 30 mg Metoclopramide HCl (Reglan Injection) 10 mg IVP EDNOW ONE Stop: 01/06/19 14:12 Last Admin: 01/06/19 15:13 Dose: 10 mg Departure - Departure Disposition: Home, Routine, Self-Care Clinical Impression: Headache Qualifiers: Headache type: unspecified Headache chronicity pattern: acute headache Intractability: intractable Qualified Code(s): R51 - Headache Condition: Good Instructions: Tension Headache (ED) Additional Instructions: Continue regular medication. Flexeril 1 pill every 8 hr to help with headache And neck pain Return for worsening symptoms Re-evaluation by your regular physician in the next 1-[address] Melo the neurologist tomorrow to schedule follow-up appointment Referrals: NONE *PRIMARY CARE P,. [Primary Care Provider] - As per Instructions Davonte Melo MD [Medical Doctor] - 2-3 days, call for appt. Samantha Rowe MD [Medical Doctor] - 1-2 days without fail Prescriptions: Cyclobenzaprine [Flexeril 10 MG (*)] 10 mg PO TID PRN #15 tab PRN Reason: Spasms
[2019-01-06 13:52] LABS: PLATELET COUNT 293 10^3/uL (150-400)
[2019-01-06] MEDS ORDERED: METOCLOPRAMIDE 10 MG/2 ML VIAL IVP ONE (14:11)
[2019-01-06] MEDS ORDERED: KETOROLAC 30 MG/1 ML SDV IVP ONE (14:11)
[2019-01-06 16:44] VITALS: BP 121/80
== END 2019-01-06 16:44 | disposition home or self-care (01) ==
DX: R51 Headache (principal); M54.2 Cervicalgia; E86.9 Volume depletion, unspecified
CPT/HCPCS: 96374; J1200; J1885; J2765